=== PATIENT | male | born 1975 | race Hispanic/Latino ===

== ENCOUNTER 2021-02-24 07:15 | Emergency (ER) | payer SELFPAY ==
[~2021-02-24] VITALS: Ht 154.9 cm; Wt 106.6 kg
[~2021-02-24 07:15] MED LIST: CYCLOBENZAPRINE10 MG PO; DIAZEPAM5 MG PO; NAPROSYN PO
== END 2021-02-24 07:39 | disposition home or self-care (01) ==
LOC: ER 07:37
DX: R05.9 Cough, unspecified (principal); B34.9 Viral infection, unspecified; I10 Essential (primary) hypertension; E11.9 Type 2 diabetes mellitus without complications
CPT/HCPCS: 99283